=== PATIENT | female | born 1995 | race Caucasian/White ===

== ENCOUNTER 2022-07-01 23:41 | Inpatient (IN) | payer OTHER ==
[~2022-07-01] VITALS: Ht 160 cm; Wt 69.5 kg
[2022-07-02] MEDS ORDERED: LORazepam 2 MG/ML VIAL IM ONE (01:15)
[2022-07-02 01:27] LABS: BASOPHILS % (AUTO) 0.5 % (0.0-2.0); EOSINOPHILS % (AUTO) 0.1 % (1.0-6.0); HEMATOCRIT 42.9 % (36-46); HEMOGLOBIN 14.8 g/dL (12.0-16.0); LYMPHOCYTES % (AUTO) 12.1 % (22.0-44.0); MEAN CORPUSCULAR HEMOGLOBIN 30.6 pg (26.0-34.0); MEAN CORPUSCULAR HGB CONC 34.7 G/dL (31.0-37.0); MEAN CORPUSCULAR VOLUME 88 fL (80-100); MONOCYTES % (AUTO) 5.9 % (2.0-9.0); NEUTROPHILS # (AUTO) 13.7 K/uL (1.8-7.7); NEUTROPHILS % (AUTO) 81.4 % (40.0-70.0); PLATELET COUNT (AUTO) 442 K/uL (150-450); RED BLOOD CELL COUNT(AUTO) 4.85 MIL/uL (4.00-5.20)
[2022-07-02 01:37] LABS: ANION GAP 13 mmol/L (8-16); CALCIUM, TOTAL 9.4 mg/dL (8.8-10.5); CARBON DIOXIDE 26 mmol/L (22-29); CHLORIDE 102 mmol/L (98-107); CREATININE 0.87 mg/dL (0.60-1.30); GLOMERULAR FILTR. RATE CALC > 60 mL/min (>60); GLUCOSE,RANDOM 113 mg/dL (70-110); POTASSIUM 3.5 mmol/L (3.5-5.1); SODIUM SERUM 141 mmol/L (136-145); UREA NITROGEN, BLOOD 19 mg/dL (7-18)
[2022-07-02 01:43] LABS: ALANINE AMINOTRANSFERASE 16 U/L (12-78); ALBUMIN 4.2 g/dL (3.4-5.0); ALKALINE PHOSPHATASE 55 U/L (46-116); ASPARTATE AMINOTRANSFERASE 13 U/L (15-37); BILIRUBIN,TOTAL 0.9 mg/dL (0.1-1.0); LIPASE 60 U/L (73-393); TOTAL PROTEIN, SERUM 8.1 g/dL (6.4-8.2)
[2022-07-02 02:27] LABS: COVID AG,FIA SOURCE NASAL SWAB
[2022-07-02 03:25] VITALS: BP 112/51
[2022-07-02] MEDS ORDERED: ONDANSETRON HCL 4 MG/2 ML VIAL IVP PRN (07:15)
[2022-07-02] MEDS ORDERED: MAGNESIUM HYDROXIDE SUSPENSION 30 ML UDCUP PO PRN (07:15)
[2022-07-02] MEDS ORDERED: SODIUM CHLORIDE 0.9% 1,000 ML IV ONE (07:15)
[2022-07-02 07:34] VITALS: BP 111/50
[2022-07-02] MEDS: FAMOTIDINE 20 MG TABLET PO SCH (08:07)
[2022-07-02 12:55] LABS: APPEARANCE,URINE TURBID (CLEAR); BILIRUBIN,URINE NEGATIVE (NEGATIVE); GLUCOSE, URINE (UA) NEGATIVE (NEGATIVE); LEUKOCYTE ESTERASE ,URINE LARGE (NEGATIVE); NITRATE,URINE NEGATIVE (NEGATIVE); OCCULT BLOOD,URINE LARGE (NEGATIVE); PROTEIN,URINE 100-200,SEE CONFIRM mg/dL (NEGATIVE); SPECIFIC GRAVITIY, URINE 1.033 (1.003-1.030); UROBILINOGEN,URINE <=1.0 mg/dL (<=1.0)
[2022-07-02 13:02] LABS: AMPHET/METH SCREEN,URINE POSITIVE (NEGATIVE); BARBITURATE SCREEN, URINE NEGATIVE (NEGATIVE); BENZODIAZEPINES SCREEN,URINE NEGATIVE (NEGATIVE); CANNABINOID SCREEN,URINE NEGATIVE (NEGATIVE); COCAINE SCREEN,URINE NEGATIVE (NEGATIVE); METHADONE SCREEN, URINE NEGATIVE (NEGATIVE); OPIATE SCREEN,URINE POSITIVE (NEGATIVE); PHENCYCLIDINE SCREEN,URINE NEGATIVE (NEGATIVE); SULFOSALICYLIC ACID,URINE 2+ (Negative)
[2022-07-02 13:03] LABS: RBC,URINE >100 /HPF (0-2); WBC,URINE 26-50 /HPF (0-5)
[2022-07-02 13:04] LABS: BACTERIA,URINE Moderate /HPF (None Seen); SQUAMOUS EPITHELIAL CELL,UR Moderate /LPF (None Seen)
[2022-07-02 15:41] VITALS: BP 106/54
[2022-07-02 20:00] VITALS: BP 133/55
[2022-07-02] MEDS: ACETAMINOPHEN 325 MG TABLET PO PRN (20:48)
[2022-07-03 04:40] VITALS: BP 119/59
[2022-07-03] MEDS: FAMOTIDINE 20 MG TABLET PO SCH (07:59)
[2022-07-03 08:12] LABS: BASOPHILS % (AUTO) 0.4 % (0.0-2.0); EOSINOPHILS % (AUTO) 0.2 % (1.0-6.0); HEMATOCRIT 39.1 % (36-46); HEMOGLOBIN 13.6 g/dL (12.0-16.0); LYMPHOCYTES # (AUTO) 1.9 K/uL (1.0-4.8); LYMPHOCYTES % (AUTO) 20.9 % (22.0-44.0); MEAN CORPUSCULAR HEMOGLOBIN 30.7 pg (26.0-34.0); MEAN CORPUSCULAR HGB CONC 34.8 G/dL (31.0-37.0); MEAN CORPUSCULAR VOLUME 88 fL (80-100); MONOCYTES # (AUTO) 0.7 K/uL (0.1-1.0); MONOCYTES % (AUTO) 7.9 % (2.0-9.0); NEUTROPHILS # (AUTO) 6.4 K/uL (1.8-7.7); NEUTROPHILS % (AUTO) 70.6 % (40.0-70.0); PLATELET COUNT (AUTO) 382 K/uL (150-450); RED BLOOD CELL COUNT(AUTO) 4.43 MIL/uL (4.00-5.20); RED CELL DISTRIBUTION WIDTH 13.8 % (11.5-14.5)
[2022-07-03 08:53] VITALS: BP 105/60
[2022-07-03] MEDS: LORazepam 2 MG/ML VIAL IVP PRN ×2 (12:06→18:34)
[2022-07-03] MEDS: ACETAMINOPHEN 325 MG TABLET PO PRN ×2 (15:56→20:10)
[2022-07-03 16:03] VITALS: BP 115/56
[2022-07-03 17:20] VITALS: BP 116/70
[2022-07-03 19:36] VITALS: BP 113/63
[2022-07-03] MEDS: ZOLPIDEM TARTRATE 5 MG TABLET PO PRN (23:53)
[2022-07-04 03:50] VITALS: BP 113/70
[2022-07-04] MEDS: LORazepam 2 MG/ML VIAL IVP PRN ×3 (07:26→17:27)
[2022-07-04 08:23] VITALS: BP 104/54
[2022-07-04] MEDS: FAMOTIDINE 20 MG TABLET PO SCH (10:03)
[2022-07-04 16:12] VITALS: BP 112/59
[2022-07-04 20:24] VITALS: BP 107/59
[2022-07-04] MEDS: ZOLPIDEM TARTRATE 5 MG TABLET PO PRN (21:18)
[2022-07-05] MEDS: FAMOTIDINE 20 MG TABLET PO SCH (07:51)
[2022-07-05] MEDS: LORazepam 2 MG/ML VIAL IVP PRN ×5 (07:51→23:17)
[2022-07-05 08:10] VITALS: BP 103/56
[2022-07-05] MEDS ORDERED: LOPERAMIDE HCL 2 MG CAPSULE PO PRN (10:15)
[2022-07-05 15:38] VITALS: BP 103/66
[2022-07-05 20:07] VITALS: BP 93/54
[2022-07-05] MEDS: ZOLPIDEM TARTRATE 5 MG TABLET PO PRN (20:30)
[2022-07-05] MEDS: ACETAMINOPHEN 325 MG TABLET PO PRN (20:30)
[2022-07-05] MEDS: LACTOBAC ACID/BULG/BIFID/THERM TABLET PO SCH (20:30)
[2022-07-06] MEDS: LORazepam 2 MG/ML VIAL IVP PRN ×5 (00:41→22:30)
[2022-07-06 05:05] VITALS: BP 103/60
[2022-07-06] MEDS: ACETAMINOPHEN 325 MG TABLET PO PRN ×2 (05:42→19:30)
[2022-07-06 06:09] LABS: BASOPHILS % (AUTO) 0.7 % (0.0-2.0); EOSINOPHILS % (AUTO) 2.9 % (1.0-6.0); HEMATOCRIT 40.5 % (36-46); HEMOGLOBIN 13.8 g/dL (12.0-16.0); LYMPHOCYTES # (AUTO) 2.4 K/uL (1.0-4.8); LYMPHOCYTES % (AUTO) 29.9 % (22.0-44.0); MEAN CORPUSCULAR HEMOGLOBIN 30.3 pg (26.0-34.0); MEAN CORPUSCULAR HGB CONC 34.1 G/dL (31.0-37.0); MEAN CORPUSCULAR VOLUME 89 fL (80-100); MONOCYTES # (AUTO) 0.5 K/uL (0.1-1.0); MONOCYTES % (AUTO) 6.9 % (2.0-9.0); NEUTROPHILS # (AUTO) 4.7 K/uL (1.8-7.7); NEUTROPHILS % (AUTO) 59.6 % (40.0-70.0); PLATELET COUNT (AUTO) 385 K/uL (150-450); RED BLOOD CELL COUNT(AUTO) 4.55 MIL/uL (4.00-5.20); RED CELL DISTRIBUTION WIDTH 13.9 % (11.5-14.5)
[2022-07-06 06:20] LABS: ANION GAP 6 mmol/L (8-16); CALCIUM, TOTAL 8.4 mg/dL (8.8-10.5); CARBON DIOXIDE 25 mmol/L (22-29); CHLORIDE 106 mmol/L (98-107); CREATININE 0.88 mg/dL (0.60-1.30); GLOMERULAR FILTR. RATE CALC > 60 mL/min (>60); GLUCOSE,RANDOM 97 mg/dL (70-110); SODIUM SERUM 137 mmol/L (136-145); UREA NITROGEN, BLOOD 15 mg/dL (7-18)
[2022-07-06 08:03] VITALS: BP 101/61
[2022-07-06] MEDS: LACTOBAC ACID/BULG/BIFID/THERM TABLET PO SCH ×2 (08:24→21:17)
[2022-07-06] MEDS: FAMOTIDINE 20 MG TABLET PO SCH (08:24)
[2022-07-06] MEDS: QUEtiapine FUMARATE 25 MG TABLET PO SCH ×2 (12:05→20:03)
[2022-07-06 19:30] VITALS: BP 97/54
[2022-07-06] MEDS: ZOLPIDEM TARTRATE 5 MG TABLET PO PRN (21:17)
[2022-07-07 03:57] VITALS: BP 94/56
[2022-07-07] MEDS: LORazepam 2 MG/ML VIAL IVP PRN (04:45)
[2022-07-07] MEDS: LACTOBAC ACID/BULG/BIFID/THERM TABLET PO SCH ×2 (07:51→20:28)
[2022-07-07] MEDS: QUEtiapine FUMARATE 25 MG TABLET PO SCH ×2 (07:51→20:28)
[2022-07-07] MEDS: FAMOTIDINE 20 MG TABLET PO SCH (07:51)
[2022-07-07 08:46] VITALS: BP 95/50
[2022-07-07] MEDS: BusPIRone HCL 5 MG TABLET PO SCH ×3 (13:38→20:28)
[2022-07-07 19:55] VITALS: BP 94/47
[2022-07-07] MEDS: ACETAMINOPHEN 325 MG TABLET PO PRN (20:28)
[2022-07-07] MEDS: ZOLPIDEM TARTRATE 5 MG TABLET PO PRN (21:19)
[2022-07-08 04:30] VITALS: BP 97/61
[2022-07-08 07:44] VITALS: BP 94/53
[2022-07-08] MEDS: BusPIRone HCL 5 MG TABLET PO SCH ×2 (08:09→15:30)
[2022-07-08] MEDS: LACTOBAC ACID/BULG/BIFID/THERM TABLET PO SCH (08:09)
[2022-07-08] MEDS: FAMOTIDINE 20 MG TABLET PO SCH (08:09)
[2022-07-08] MEDS: QUEtiapine FUMARATE 25 MG TABLET PO SCH (08:09)
[2022-07-08] MEDS ORDERED: BUSP5TAB20 PO (13:12)
[2022-07-08] MEDS ORDERED: ACID1TAB13 PO (13:13)
[2022-07-08] MEDS ORDERED: QUET25TA PO (13:14)
[2022-07-08] MEDS: ACETAMINOPHEN 325 MG TABLET PO PRN (15:30)
[2022-07-08 15:31] VITALS: BP 98/52
== END 2022-07-08 18:01 | DRG 897 ==
LOC: EMS 23:47 → 6S 07-02 01:30
PROVIDERS: ADMIT Internal Medicine; ATTEND Internal Medicine
DX: F11.13 Opioid abuse with withdrawal (principal); R65.10 Systemic inflammatory response syndrome (SIRS) of non-infectious origin without acute organ dysfunction; F15.13 Other stimulant abuse with withdrawal; F17.200 Nicotine dependence, unspecified, uncomplicated; E87.6 Hypokalemia; Z20.822 Contact with and (suspected) exposure to COVID-19; F41.1 Generalized anxiety disorder
CPT/HCPCS: 80048; 80053; 80307; 81001; 81002; 83690; 84703; 85025; 87086; 87186; 99285; G0480; J2060; J2405